=== PATIENT | male | born 1985 | race Caucasian/White ===

== ENCOUNTER 2016-12-06 10:51 | Emergency (ER) | payer OTHER ==
[2016-12-06 11:04] VITALS: BP 122/76; PULSE 83; TEMP 98.1; BMI 31.0
[2016-12-06] MEDS ORDERED: KETOROLAC TROMETHAMINE 60 MG/2 ML VIAL IM ONE (11:24)
[2016-12-06] MEDS ORDERED: KETOROLAC TROMETHAMINE 60 MG/2 ML VIAL ONE (11:36)
--- NOTE | 2016-12-06 12:17 | PDOC ---
History of Present Illness - General Chief Complaint: Chest Pain Stated Complaint: CHEST PAIN Time Seen by Provider: 12/06/16 11:22 History Source: Patient - History of Present Illness Initial Comments: 12/06/16 12:09 31 yr male with c/o pain to upper left side of back radiates across to chest worse with movement and deep breath. Pt has had the pain fo r3 days denies any trauma denies any heavy lifting or nausea or vomiting. no medical history. no foreign travel. immunizations are UTD. Pt did not take any meds [employer]. Severity: mild Associated Symptoms: reports: denies symptoms. denies: shortness of breath Past History - Past Medical History Allergies/Adverse Reactions: Allergies Allergy/AdvReac Type Severity Reaction Status Date / Time No Known Allergies Allergy Verified 12/06/16 11:04 Home Medications: Ambulatory Orders Emtricitabine/Tenofovir [Truvada -] 1 tab PO DAILY #30 tablet 11/13/16 Cyclobenzaprine HCl [Flexeril 10 mg] 5 mg PO TID PRN #15 tablet 12/06/16 Ibuprofen [Motrin -] 600 mg PO TID PRN #21 tablet 12/06/16 Asthma: No Diabetes: No HTN: No Other medical history: denies - Psycho/Social/Smoking Cessation Hx Suicidal Ideation: No Smoking History: Never smoked Information on smoking cessation initiated: No Hx Alcohol Use: No Drug/Substance Use Hx: No Substance Use Type: None Review of Systems - Review of Systems Able to Perform ROS?: Yes Is the patient limited Turkmen proficient: No Constitutional: No: Symptoms Reported HEENTM: No: Symptoms Reported Respiratory: No: Symptoms reported Cardiac (ROS): Yes: See HPI ABD/GI: No: Symptoms Reported Musculoskeletal: Yes: See HPI, Back Pain *Physical Exam - Vital Signs Last Vital Signs Temp Pulse Resp BP Pulse Ox 98.1 F 83 18 122/76 97 12/06/16 11:00 12/06/16 11:00 12/06/16 11:00 12/06/16 11:00 12/06/16 11:00 - Physical Exam General Appearance: Yes: Nourished, Appropriately Dressed HEENT: positive: EOMI, [place], Normal ENT Inspection, TMs Normal, Pharynx Normal Neck: positive: Supple. negative: Tender, Lymphadenopathy (R), Lymphadenopathy (L) Respiratory/Chest: positive: Lungs Clear, Normal Breath Sounds. negative: Chest Tender Cardiovascular: positive: Regular Rhythm, Regular Rate Gastrointestinal/Abdominal: positive: Normal Bowel Sounds, Soft Musculoskeletal: positive: Normal Inspection Extremity: positive: Normal Capillary Refill, Normal Inspection, Normal Range of Motion Integumentary: positive: Normal Color, Dry, Warm. negative: Hives, Rash Neurologic: positive: motion study technician II-XII NML intact, Fully Oriented, Alert, Normal Mood/ Affect, Normal Response, Motor Strength 10/26 ED Treatment Course - RADIOLOGY Radiology Studies Ordered: Category Date Time Status CHEST PA & LAT [RAD] Stat Radiology 12/06/16 11:33 Taken - Medications Given in the ED: ED Medications Discontinued Medications Generic Name Dose Route Start Last Admin Trade Name Freq PRN Reason Stop Dose Admin Ketorolac Tromethamine 60 mg 12/06/16 11:24 12/06/16 11:38 Toradol Injection - IM 12/06/16 11:25 60 mg ONCE ONE Administration Medical Decision Making - Medical Decision Making 12/06/16 12:17 cc: pain to back and to chest no nvd no arm pain no SOB or diff breathing pain is reproducable with movement and with deep breathing will get CXR and give toradol EKG done in triage is NSR with RBBB signed by 12/06/16 12:20 12/06/16 13:15 12/06/16 13:19 pt feels better after toradol states pain is much better. no other complaints at dc. pt will follow with PMD. *DC/Admit/Observation/Transfer Diagnosis at time of Disposition: Muscle strain - Discharge Dispostion Disposition: HOME Condition at time of disposition: Good - Prescriptions Prescriptions: Cyclobenzaprine HCl [Flexeril 10 mg] 5 mg PO TID PRN #15 tablet PRN Reason: Muscle Spasms Ibuprofen [Motrin -] 600 mg PO TID PRN #21 tablet PRN Reason: Pain - Patient Instructions Additional Instructions: follow with your medical doctor next week for follow up take motrin as directed for any pain take flexeril for any muscle spasm return to ER for any worsening symptoms
--- NOTE | 2016-12-06 16:37 | EKG ---
Test Reason : Blood Pressure : / mmHG Vent. Rate : 072 BPM Atrial Rate : 072 BPM P-R Int : 168 ms QRS Dur : 094 ms QT Int : 388 ms P-R-T Axes : 050 010 023 degrees QTc Int : 424 ms NORMAL SINUS RHYTHM NORMAL ECG Confirmed by STEPHANIE LEAVITT MD ([id number]) on 12/06/2016 4:36:41 PM Referred By: Confirmed By:STEPHANIE LEAVITT MD
== END 2016-12-06 13:31 | disposition home or self-care (01) ==
LOC: JERFT 10:51 → JER 10:51 → JERFT 13:31
PROC: 3E0233Z Introduction of Anti-inflammatory into Muscle, Percutaneous Approach (ICD-10-PCS; principal; 2016-12-06)
DX: T14.8 Other injury of unspecified body region (principal); X58.XXXA Exposure to other specified factors, initial encounter; Y93.9 Activity, unspecified; Y92.9 Unspecified place or not applicable
CPT/HCPCS: 71020-TC; 93005; 93010; 99281-25

== ENCOUNTER 2017-01-24 12:04 | Inpatient (IN) | payer OTHER ==
[2017-01-24 12:11] VITALS: BMI 31.3
[2017-01-24] MEDS ORDERED: ONDANSETRON 4 MG/2 ML VIAL IVPUSH ONE (12:37)
[2017-01-24] MEDS ORDERED: morphine CARPU-JECT 4 MG/1 ML DISP.SYRIN IVPUSH ONE (12:37)
[2017-01-24] MEDS ORDERED: SODIUM CHLORIDE 1,000 ML IV SCH ×2 (12:45→21:51)
[2017-01-24 12:50] LABS: BASOPHIL 0.2 % (0-2.0); MCH 29.2 pg (25.7-33.7); MCHC 33.2 g/dl (32.0-35.9); MEAN CELL VOLUME 87.8 fl (80-96); MEAN PLT VOLUME 7.1 fl (7.5-11.1); NEUTROPHILS 82.8 % (42.8-82.8); PLATELET COUNT 207 K/MM3 (134-434); RDW 13.5 % (11.9-15.9); WHITE BLOOD COUNT 15.7 K/mm3 (4.0-10.0)
[2017-01-24] MEDS ORDERED: ONDANSETRON 4 MG/2 ML VIAL ONE (13:12)
[2017-01-24] MEDS ORDERED: morphine CARPU-JECT 4 MG/1 ML DISP.SYRIN ONE (13:12)
[2017-01-24 13:16] LABS: ALBUMIN 4.2 g/dl (3.4-5.0); ANION GAP 9 (8-16); CALCIUM 8.7 mg/dL (8.5-10.1); CO2 30 mmol/L (21-32); GLUCOSE,RANDOM 86 mg/dL (74-106); SGPT/ALT 50 U/L (12-78)
[2017-01-24 13:17] LABS: ALK PHOS 92 U/L (45-117); BILIRUBIN,TOTAL 1.7 mg/dL (0.2-1.0); TOT PROT 7.5 g/dl (6.4-8.2)
[2017-01-24 13:18] LABS: SGOT/AST 29 U/L (15-37)
--- NOTE | 2017-01-24 13:23 | PDOC ---
History of Present Illness - General History Source: Patient Exam Limitations: No Limitations - History of Present Illness Initial Comments: 01/24/17 13:18 CHIEF COMPLAINT: Abdominal pain HISTORY OF PRESENT ILLNESS: This is a 31 year old male with no significant past medical history (uses Truvada for PrEP) who presents to the ED complaining of abdominal pain. He reports that the pain started last night after eating pizza, chinese fries, and other fried foods. He also had one alcoholic drink. The pain is lower abdominal, severe in nature, and not relieved by OTC pain meds. He denies any associated nausea/vomiting, diarrhea/constipation, dysuria, or fever. He has had some chills. Of note, the patient was recently noted to have mildly elevated LFTs (AST/ALT 69 /139) as an outpatient. V/s on arrival are notable for P 100. REVIEW OF SYSTEMS: GENERAL/CONSTITUTIONAL: Chills, no fever. No weakness. No weight change. HEAD, EYES, EARS, NOSE AND THROAT: No change in vision. No ear pain or discharge. No sore throat. CARDIOVASCULAR: No chest pain or palpitations. RESPIRATORY: No cough, wheezing, or shortness of breath. GASTROINTESTINAL: See HPI. GENITOURINARY: No dysuria, frequency, or change in urination. MUSCULOSKELETAL: No joint or muscle swelling or pain. No neck or back pain. SKIN: No rash or easy bruising. NEUROLOGIC: No headache, vertigo, loss of consciousness, or loss of sensation. PSYCHIATRIC: No depression or anxiety. ENDOCRINE: No increased thirst. No abnormal weight change. HEMATOLOGIC/LYMPHATIC: No anemia, easy bleeding, or history of blood clots. ALLERGIC/IMMUNOLOGIC: No hives or skin allergy. No latex allergy. PHYSICAL EXAM: GENERAL: The patient is awake, alert, and fully oriented, in some distress secondary to pain. HEAD: Normal with no signs of trauma. ENT: Pupils equal, round and reactive to light, extraocular movements intact, sclera anicteric, conjunctiva clear. Neck supple. LUNGS: Clear to auscultation bilaterally. Normal excursion. No respiratory distress or use of accessory muscles. CV: RRR, S1/S2, no MRG. Cap refill < 2 sec. ABDOMEN: Soft, non-distended, tender to palpation in RLQ without guarding or rebound tenderness. EXTREMITIES: Normal range of motion, no edema. NEUROLOGICAL: Normal speech, normal gait. CN II-XII grossly intact. PSYCH: Normal mood, normal affect. SKIN: Warm, moist. <Lizette Boykin - Last Filed: 01/24/17 18:08> <Kendra Parker - Last Filed: 01/24/17 18:14> - General Chief Complaint: Pain Stated Complaint: ABD PAIN Time Seen by Provider: 01/24/17 12:26 Past History - Past Medical History Asthma: No Diabetes: No HTN: No Other medical history: On Truvada for prevention - Psycho/Social/Smoking Cessation Hx Suicidal Ideation: No Smoking History: Never smoked Information on smoking cessation initiated: No Hx Alcohol Use: Yes (occasional) Drug/Substance Use Hx: No Substance Use Type: None <Lizette Boykin - Last Filed: 01/24/17 18:08> <Kendra Parker - Last Filed: 01/24/17 18:14> - Past Medical History Allergies/Adverse Reactions: Allergies Allergy/AdvReac Type Severity Reaction Status Date / Time No Known Allergies Allergy Verified 01/24/17 12:11 Home Medications: Ambulatory Orders NK [No Known Home Medication] 01/24/17 *Physical Exam - Vital Signs Last Vital Signs Temp Pulse Resp BP Pulse Ox 98.3 F 100 H 19 138/89 98 01/24/17 12:09 01/24/17 12:09 01/24/17 12:09 01/24/17 12:09 01/24/17 12:09 <Lizette Boykin - Last Filed: 01/24/17 18:08> - Vital Signs Last Vital Signs Temp Pulse Resp BP Pulse Ox 98.3 F 100 H 19 138/89 98 01/24/17 12:09 01/24/17 12:09 01/24/17 12:09 01/24/17 12:09 01/24/17 12:09 <Kendra Parker - Last Filed: 01/24/17 18:14> ED Treatment Course - LABORATORY CBC & Chemistry Diagram: 01/24/17 12:30 01/24/17 12:30 - ADDITIONAL ORDERS Additional order review: 01/24/17 12:30 RBC 5.10 MCV 87.8 MCHC 33.2 RDW 13.5 MPV 7.1 L Neutrophils % 82.8 D Lymphocytes % 9.5 D Monocytes % 7.5 Eosinophils % 0.0 D Basophils % 0.2 - RADIOLOGY Radiology Studies Ordered: Category Date Time Status ABDOMEN & PELVIS CT WITH CONTR [CT] Stat CT Scan 01/24/17 12:37 Ordered - Medications Given in the ED: ED Medications Discontinued Medications Generic Name Dose Route Start Last Admin Trade Name Josh PRN Reason Stop Dose Admin Morphine Sulfate 4 mg 01/24/17 12:37 01/24/17 13:10 Morphine Injection - IVPUSH 01/24/17 12:38 4 mg ONCE ONE Administration Ondansetron HCl 4 mg 01/24/17 12:37 01/24/17 13:10 Zofran Injection IVPUSH 01/24/17 12:38 4 mg ONCE ONE Administration <Lizette Boykin - Last Filed: 01/24/17 18:08> - LABORATORY CBC & Chemistry Diagram: 01/24/17 12:30 01/24/17 12:30 - ADDITIONAL ORDERS Additional order review: Laboratory Results 01/24/17 01/24/17 14:00 12:30 Sodium 138 Potassium 3.9 Chloride 99 Carbon Dioxide 30 Anion Gap 9 BUN 14 Creatinine 1.0 Creat Clearance w eGFR > 60 Random Glucose 86 Calcium 8.7 Total Bilirubin 1.7 H D AST 29 D ALT 50 D Alkaline Phosphatase 92 Total Protein 7.5 Albumin 4.2 Lipase 108 Urine Color Yellow Urine Appearance Clear Urine pH 6.0 Urine Protein Negative Urine Glucose (UA) Negative Urine Ketones Negative Urine Blood Negative Urine Nitrite Negative Urine Bilirubin Negative Urine Urobilinogen 4.0 e.u/dl Ur Leukocyte Esterase Negative 01/24/17 12:30 RBC 5.10 MCV 87.8 MCHC 33.2 RDW 13.5 MPV 7.1 L Neutrophils % 82.8 D Lymphocytes % 9.5 D Monocytes % 7.5 Eosinophils % 0.0 D Basophils % 0.2 - Medications Given in the ED: ED Medications Discontinued Medications Generic Name Dose Route Start Last Admin Trade Name Freq PRN Reason Stop Dose Admin Morphine Sulfate 4 mg 01/24/17 12:37 01/24/17 13:10 Morphine Injection - IVPUSH 01/24/17 12:38 4 mg ONCE ONE Administration Ondansetron HCl 4 mg 01/24/17 12:37 01/24/17 13:10 Zofran Injection IVPUSH 01/24/17 12:38 4 mg ONCE ONE Administration <Kendra Parker - Last Filed: 01/24/17 18:14> Medical Decision Making - Medical Decision Making 01/24/17 13:49 A/P: 31 year old male with abdominal pain and RLQ tenderness. 1. Labs including CBC, comp, lipase 2. CTAP to r/o appendicitis 3. Morphine 4mg IVP for pain 4. Re-assess 01/24/17 14:30 WBC 15.7 T Bili 1.7 01/24/17 17:59 CTAP reviewed: acute appendicitis without signs of perforation or abscess formation. Zosyn and NPO ordered. Discussed with Dr. Dias. <Lizette Boykin - Last Filed: 01/24/17 18:08> - Medical Decision Making Paged Dr. Dimas @ 18:14. Awaiting call back. <Kendra Parker - Last Filed: 01/24/17 18:14> *DC/Admit/Observation/Transfer - Discharge Dispostion Admit: Yes <Lizette Boykin - Last Filed: 01/24/17 18:08> <Kendra Parker - Last Filed: 01/24/17 18:14> Diagnosis at time of Disposition: Appendicitis Qualifiers: Appendicitis type: acute appendicitis Acute appendicitis type: unspecified acute appendicitis type Qualified Code(s): K35.80 - Unspecified acute appendicitis
[2017-01-24 14:16] LABS: URINE APPEARANCE CLEAR; URINE BILIRUBIN NEGATIVE (NEGATIVE); URINE BLOOD NEGATIVE (NEGATIVE); URINE COLOR YELLOW; URINE GLUCOSE (UA) NEGATIVE (NEGATIVE); URINE KETONE NEGATIVE (NEGATIVE); URINE LEUK ESTERASE NEGATIVE (NEGATIVE); URINE NITRITE NEGATIVE (NEGATIVE); URINE PROTEIN NEGATIVE (NEGATIVE); URINE UROBILINOGEN 4.0 E.U/dl mg/dL (0.2-1.0)
[2017-01-24] MEDS ORDERED: PIPERACILLIN/TAZOB 4.5 GM/100 ML PRE-DOCKED IVPB ONE (17:59)
[2017-01-24] MEDS ORDERED: PIPERACILLIN/TAZOB 4.5 GM 100 ML IVPB ONE (18:12)
--- NOTE | 2017-01-24 19:20 | PDOC ---
*Physical Exam - Vital Signs Last Vital Signs Temp Pulse Resp BP Pulse Ox 98.6 F 82 19 103/61 98 01/24/17 16:09 01/24/17 16:09 01/24/17 12:09 01/24/17 16:09 01/24/17 16:09 - Physical Exam General Appearance: Yes: Nourished, Appropriately Dressed Neck: positive: Trachea midline Respiratory/Chest: positive: Lungs Clear, Normal Breath Sounds Cardiovascular: positive: Regular Rhythm, Regular Rate, S1, S2. negative: Edema Gastrointestinal/Abdominal: positive: Normal Bowel Sounds, Tender (rlq ttp no rebound no guarding.), Flat, Soft Musculoskeletal: positive: Normal Inspection. negative: CVA Tenderness Extremity: positive: Normal Capillary Refill Integumentary: positive: Normal Color, Dry, Warm Neurologic: positive: Fully Oriented ED Treatment Course - LABORATORY CBC & Chemistry Diagram: 01/24/17 12:30 01/24/17 12:30 - ADDITIONAL ORDERS Additional order review: Laboratory Results 01/24/17 01/24/17 14:00 12:30 Sodium 138 Potassium 3.9 Chloride 99 Carbon Dioxide 30 Anion Gap 9 BUN 14 Creatinine 1.0 Creat Clearance w eGFR > 60 Random Glucose 86 Calcium 8.7 Total Bilirubin 1.7 H D AST 29 D ALT 50 D Alkaline Phosphatase 92 Total Protein 7.5 Albumin 4.2 Lipase 108 Urine Color Yellow Urine Appearance Clear Urine pH 6.0 Ur Specific [place] 1.015 Urine Protein Negative Urine Glucose (UA) Negative Urine Ketones Negative Urine Blood Negative Urine Nitrite Negative Urine Bilirubin Negative Urine Urobilinogen 4.0 e.u/dl Ur Leukocyte Esterase Negative 01/24/17 12:30 RBC 5.10 MCV 87.8 MCHC 33.2 RDW 13.5 MPV 7.1 L Neutrophils % 82.8 D Lymphocytes % 9.5 D Monocytes % 7.5 Eosinophils % 0.0 D Basophils % 0.2 - Medications Given in the ED: ED Medications Discontinued Medications Generic Name Dose Route Start Last Admin Trade Name Freq PRN Reason Stop Dose Admin Morphine Sulfate 4 mg 01/24/17 12:37 01/24/17 13:10 Morphine Injection - IVPUSH 01/24/17 12:38 4 mg ONCE ONE Administration Ondansetron HCl 4 mg 01/24/17 12:37 01/24/17 13:10 Zofran Injection IVPUSH 01/24/17 12:38 4 mg ONCE ONE Administration Piperacillin Sod/Tazobactam Sod 4.5 gm 01/24/17 17:59 01/24/17 18:20 Zosyn 4.5gm Ivpb (Pre-Docked) IVPB 01/24/17 18:00 4.5 gm ONCE ONE Administration Medical Decision Making - Medical Decision Making 01/24/17 19:18 31 yo ma with h/o prophylaxis truvada here wtih c/o abd pain. had elevated liver test. no n/v no f/c pain moderatek right sided lower abd. on exam awake alert lungs clear heart rrr nomrg. abd soft rlq ttp. plan: ct a/p gb us. labs pt seen and examined with dr. juárez. agree with plan. focused ED ultrasound RUQ, indication abd pain elevated liver enzymes gb scanned in two planes no stones, no wall thickening or edema. normal cbd. negative sonographic pimentel' s cbd < 4 mm wall normal 1.4 mm impression: normal gallbladder. cirilli ct with appendicitsl.d/w dr. winston, will see in ed. *DC/Admit/Observation/Transfer Diagnosis at time of Disposition: Appendicitis Qualifiers: Appendicitis type: acute appendicitis Acute appendicitis type: unspecified acute appendicitis type Qualified Code(s): K35.80 - Unspecified acute appendicitis
--- NOTE | 2017-01-24 20:13 | HP ---
Satellite [facility] - Chief Complaint Chief Complaint: C/O Right lower quadrant abdominal pain since yesterday. History of Present Illness: C/O Right lwer quadrant abdominal pain since yesterday, persistent and not relieved . Has loss of appetite. No fever , no chills. History Source: Patient Limitations to Obtaining History: No Limitations - Past Medical History Allergies/Adverse Reactions: Allergies Allergy/AdvReac Type Severity Reaction Status Date / Time No Known Allergies Allergy Verified 01/24/17 12:11 - Current Medications Current Medications: Home Medications Medication Instructions Recorded NK [No Known Home Medication] 01/24/17 [facility] Physical Exam - Physical Examination Abdomen: Soft (Tender in the right lower quadrant of abdomen with guarding. Obese abdomen.) Satellite Impression/Plan - Impression/Plan Impression: Acute appendicitis. Plan : Laparoscopic appendectomy , possible open. Patient is explained the procedure , with alternatives, and complications , of bleeding , abscess, etc. Consent obtained for laparoscopic appendectomy , possible open. Antibiotics given. To OR. Operative Procedure: Laparoscopic appendectomy , possible open. Date to be Performed: 01/24/17
[2017-01-24] MEDS ORDERED: LIDOCAINE HCL 1%, 10 MG/ML (20ML VIAL) ONE (21:12)
[2017-01-24] MEDS ORDERED: BUPIVACAINE HCL/PF 0.5% (5MG/ML) 10 ML VIAL ONE (21:13)
[2017-01-24] MEDS ORDERED: LIDOCAINE HCL 1%, 10 MG/ML (20ML VIAL) IJ ONE (21:18)
[2017-01-24] MEDS ORDERED: BUPIVACAINE HCL/PF 0.5% (5MG/ML) 10 ML VIAL IJ ONE (21:19)
[2017-01-24] MEDS ORDERED: HYDROmorphone HCL CARPU-JECT 1 MG/1 ML DISP.SYRIN IVPB PRN (21:35)
--- NOTE | 2017-01-24 21:39 | OP ---
Operative Note - Note: Operative Date: 01/24/17 Pre-Operative Diagnosis: Acute appendicitis Operation: Laparoscopic appendectomy. Findings: Acute suppurative appendicitis. Post-Operative Diagnosis: Other (Acute suppurative appendicitis.) Surgeon: Grant Dias Anesthesia: General Specimens Removed: Appendix Estimated Blood Loss (mls): 10 Operative Report Dictated: Yes
[2017-01-24] MEDS ORDERED: HYDROmorphone HCL CARPU-JECT 1 MG/1 ML DISP.SYRIN IVPUSH PRN (21:47)
[2017-01-24] MEDS ORDERED: ONDANSETRON 4 MG/2 ML VIAL IVPUSH PRN (21:47)
[2017-01-24] MEDS ORDERED: ACETAMINOPHEN 1000 MG/100 ML VIAL (NON FORMULARY) IVPB ONE (21:49)
[2017-01-24] MEDS ORDERED: ACETAMINOPHEN INJECTION 100 ML IVPB ONE (21:54)
[2017-01-24] MEDS: LACTATED RINGERS SOLUTION 1,000 ML IV SCH (23:24)
[2017-01-25] MEDS: METRONIDAZOLE 500 MG PREMIXED 100 ML IVPB SCH ×3 (01:39→17:15)
--- NOTE | 2017-01-25 08:40 | PN ---
Progress Note (short form) - Note Progress Note: Anesthesia post op Pt seen and examined S:alert and awake O: Vital Signs Temperature 97.4 F L 01/25/17 06:00 Pulse Rate 50 L 01/25/17 06:00 Respiratory Rate 20 01/25/17 06:00 Blood Pressure 100/50 01/25/17 06:00 O2 Sat by Pulse Oximetry (%) 99 01/25/17 00:19 A/P:Current Active Problems Appendicitis (Acute) s/p appendectomy Doing well post op Continue current care Rod Rivera MD
[2017-01-25 08:56] LABS: BASOPHIL 0.1 % (0-2.0); MCH 29.5 pg (25.7-33.7); MCHC 33.5 g/dl (32.0-35.9); MEAN CELL VOLUME 87.9 fl (80-96); MEAN PLT VOLUME 7.5 fl (7.5-11.1); NEUTROPHILS 90.3 % (42.8-82.8); PLATELET COUNT 212 K/MM3 (134-434); RDW 13.8 % (11.9-15.9); WHITE BLOOD COUNT 11.6 K/mm3 (4.0-10.0)
[2017-01-25 09:03] LABS: ANION GAP 10 (8-16); CALCIUM 8.5 mg/dL (8.5-10.1); CO2 27 mmol/L (21-32); GLUCOSE,RANDOM 119 mg/dL (74-106)
[2017-01-25 09:04] LABS: CREATININE 0.9 mg/dL (0.7-1.3)
[2017-01-25] MEDS: LACTATED RINGERS SOLUTION 1,000 ML IV SCH (09:07)
[2017-01-25] MEDS ORDERED: PT OWN MED DRAWER 7, Y5N ONE (09:10)
[2017-01-25] MEDS: LEVOFLOXACIN 500 MG IVPB 100 ML IVPB SCH (09:12)
--- NOTE | 2017-01-25 09:31 | OP ---
DATE OF OPERATION: 01/24/2017 PREOPERATIVE DIAGNOSIS: Acute appendicitis. POSTOPERATIVE DIAGNOSIS: Acute suppurative appendicitis. OPERATIVE PROCEDURE: Laparoscopic appendectomy. SURGEON: Kaylee Dias MD ANESTHESIA: General anesthesia. OPERATIVE DESCRIPTION: This 31-year-old man came to the emergency room complaining of right lower quadrant abdominal pain for 2 days associated with nausea. Patient is obese. He is tender in the right lower quadrant. CAT scan suggested acute appendicitis. Patient was informed of the diagnosis and suggested laparoscopic appendectomy, possible open appendectomy. Risks, benefits, and complications were discussed with the patient, including alternatively treating with antibiotics. Consent was obtained. Patient was given antibiotics in the emergency room. Patient was brought to the operating room for laparoscopic appendectomy. Patient was given general anesthesia. [place]a catheter was placed in the bladder. It was removed right after the surgery. The abdomen was painted and draped. Incision was made in the infraumbilical portion of the umbilicus. It was deepened through the skin, subcutaneous tissue, and the linea alba. The peritoneum was incised and a 10-to-12-mm laparoscopic trocar of the Coy type was inserted into the abdominal cavity. The abdomen was insufflated with carbon dioxide at 6 L per minute to with a maximum intraabdominal pressure of 15 mmHg. A 5-mm laparoscopic camera was introduced into the abdominal cavity. Under direct vision, a 5-mm trocar was inserted into the abdomen in the suprapubic area after making a small incision on the skin. This was noted to enter the abdominal cavity under direct vision with the camera. A 3rd trocar, another 5-mm, was inserted in the right upper quadrant of the abdomen entering the abdominal cavity under direct vision with the camera. The cecum was normal and so was the terminal ileum. The appendix was then identified in a retroileal position. This was then mobilized on the tip. There was a suppurative purulent exudate on the surface of the appendix. The appendix was then grasped with a grasper through the right upper quadrant of the abdomen and retracted cephalad and anteriorly, thus exposing the rest of the appendix. The mesoappendix was visualized. The camera was switched to the subxiphoid port. The Harmonic scalpel was then introduced through the umbilical port and the mesoappendix was then divided using the Harmonic scalpel to cauterize all the vessels and divide the mesoappendix. This was followed all the way up to the base of the appendix. Once the base of the appendix was identified, an Endo-FARHAT was introduced through the umbilical port. This was fired across the base of the appendix. The staple line was complete. There was no bleeding. An EndoCatch was then introduced through the umbilical port, the appendix placed in the EndoCatch and retrieved out of the abdominal cavity. Specimen was sent to Pathology. The right lower quadrant of the abdomen was then thoroughly irrigated with normal saline. All fluid was clear. There was no bleeding. The rest of the bowel was normal. The instruments were withdrawn under direct vision. The linea alba in the midline at the umbilicus was approximated with interrupted [id number] 0 Vicryl sutures. The skin was approximated with buried interrupted 4-0 Biosyn sutures. Sponge count, instrument count were correct. Dermabond was applied across the skin edges. Estimated blood loss was less than 10. Patient tolerated the procedure well, was extubated, and sent to the recovery room in satisfactory and stable condition. Marbin [id number]
--- NOTE | 2017-01-25 13:35 | PN ---
Progress Note, Physician History of Present Illness: S/P laparoscopic appendectomy. Patient is feeling well. He is hungry. Nursing staff have him NPO. Abdomen is soft , not tender. WBC is improving. Continue antibiotics. Regular diet , D.C Iv fluids. - Current Medication List Current Medications: Active Medications Acetaminophen (Tylenol -) 325 mg PO Q6H PRN PRN Reason: PAIN Fentanyl (Sublimaze Injection -) 50 mcg IVPUSH [id number] PRN PRN Reason: PAIN Stop: 01/27/17 21:48 Hydromorphone HCl (Dilaudid Injection -) 1 mg IVPB Q4H PRN PRN Reason: PAIN Hydromorphone HCl (Dilaudid Injection -) 0.5 mg IVPUSH [id number] PRN PRN Reason: PAIN Stop: 01/27/17 21:48 Levofloxacin (Levaquin 500 Mg Premixed Ivpb -) 100 mls @ 100 mls/hr IVPB DAILY [facility] Last Admin: 01/25/17 09:12 Dose: 100 mls/hr Metronidazole (Flagyl 500mg Premixed Ivpb -) 100 mls @ 100 mls/hr IVPB Q8H-IV JIM Last Admin: 01/25/17 09:11 Dose: 100 mls/hr Lactated Ringer's (Lactated Ringers Solution) 1,000 mls @ 125 mls/hr IV ASDIR [facility] Last Admin: 01/25/17 09:07 Dose: 125 mls/hr Sodium Chloride (Normal Saline -) 1,000 mls @ 125 mls/hr IV ASDIR [facility] Last Admin: 01/24/17 22:30 Dose: 0 mls Oxycodone HCl (Roxicodone -) 5 mg PO Q6H PRN PRN Reason: PAIN - Objective Vital Signs: Vital Signs Temperature 97.5 F L 01/25/17 08:00 Pulse Rate 53 L 01/25/17 08:00 Respiratory Rate 18 01/25/17 08:00 Blood Pressure 107/64 01/25/17 08:00 O2 Sat by Pulse Oximetry (%) 99 01/25/17 00:19 Labs: CBC, BMP 01/25/17 06:00 01/25/17 06:00
[2017-01-25] MEDS: oxyCODONE HCL 5 MG TABLET PO PRN (14:35)
[2017-01-25] MEDS: ACETAMINOPHEN 325 MG TABLET (FP) PO PRN (14:36)
[2017-01-26] MEDS: LACTATED RINGERS SOLUTION 1,000 ML IV SCH (01:59)
[2017-01-26] MEDS: METRONIDAZOLE 500 MG PREMIXED 100 ML IVPB SCH ×2 (02:00→09:55)
[2017-01-26] MEDS: oxyCODONE HCL 5 MG TABLET PO PRN (08:17)
[2017-01-26] MEDS: ACETAMINOPHEN 325 MG TABLET (FP) PO PRN (08:18)
[2017-01-26] MEDS: LEVOFLOXACIN 500 MG IVPB 100 ML IVPB SCH (11:02)
--- NOTE | 2017-01-26 11:53 | PN ---
Progress Note, Physician - Current Medication List Current Medications: Active Medications Acetaminophen (Tylenol -) 325 mg PO Q6H PRN PRN Reason: PAIN Last Admin: 01/26/17 08:18 Dose: 325 mg Hydromorphone HCl (Dilaudid Injection -) 1 mg IVPB Q4H PRN PRN Reason: PAIN Hydromorphone HCl (Dilaudid Injection -) 0.5 mg IVPUSH [id number] PRN PRN Reason: PAIN Stop: 01/27/17 21:48 Levofloxacin (Levaquin 500 Mg Premixed Ivpb -) 100 mls @ 100 mls/hr IVPB DAILY [facility] Last Admin: 01/26/17 11:02 Dose: 100 mls/hr Metronidazole (Flagyl 500mg Premixed Ivpb -) 100 mls @ 100 mls/hr IVPB Q8H-IV JIM Last Admin: 01/26/17 09:55 Dose: 100 mls/hr Lactated Ringer's (Lactated Ringers Solution) 1,000 mls @ 125 mls/hr IV ASDIR [facility] Last Admin: 01/26/17 01:59 Dose: Not Given Oxycodone HCl (Roxicodone -) 5 mg PO Q6H PRN PRN Reason: PAIN Last Admin: 01/26/17 08:17 Dose: 5 mg - Objective Vital Signs: Vital Signs Temperature 97.8 F 01/26/17 06:36 Pulse Rate 66 01/26/17 06:36 Respiratory Rate 20 01/26/17 06:36 Blood Pressure 97/64 01/26/17 06:36 O2 Sat by Pulse Oximetry (%) 99 01/25/17 21:00 Labs: CBC, BMP 01/25/17 06:00 01/25/17 06:00 Assessment/Plan Patient is comfortable, has no complaints. Normal temperature. Plan : Discharge home, instructions given. Will continue oral antibiotics. Will follow in the office.
[2017-01-26 14:40] VITALS: BP 95/58; PULSE 80; TEMP 98.2
--- NOTE | 2017-01-28 15:46 | PATH ---
Surgical Pathology Report Patient Name: CARTER CADENA Med. Rec. #: [id number] /Age/Gender: 1985 (Age: 31) / M Account: [id number] Location: [facility] MED/SURG Taken: 01/24/2017 Received: 01/25/2017 Reported: 01/28/2017 Physicians: Kaylee Dias M.D. Specimen(s) Received APPENDIX Clinical History Appendicitis Final Diagnosis APPENDIX, APPENDECTOMY: ACUTE APPENDICITIS AND PERIAPPENDICITIS WITH AREA OF APPARENT PERFORATION. Electronically Signed Jero Campa M.D. Gross Description Received in formalin, labeled "appendix," is a 6.5 cm. in length vermiform appendix with a stapled margin of resection and minimal attached fat. The serosa is cole-caruso and necrotic with a focal defect. Sectioning reveals a hemorrhagic lumen. The wall of the appendix averages 0.1 cm. in thickness. Invoice Classification Clerk sections are submitted in one cassette. 01/25/2017 [facility]01/25/2017
== END 2017-01-26 13:30 | disposition home or self-care (01) | DRG 343 ==
LOC: JER 12:04 → JERBED 18:09 → J8W 22:48
PROVIDERS: ADMIT Internal Medicine; ATTEND Internal Medicine
PROC: 0DTJ4ZZ Resection of Appendix, Percutaneous Endoscopic Approach (ICD-10-PCS; principal; 2017-01-24 20:00)
DX: K35.89 Other acute appendicitis (principal)
CPT/HCPCS: 36415; 74177-TC; 76705-TC; 80048; 80053; 81003; 83690; 85025; 88304-TC; 94760; 99282-25; Q9967

== ENCOUNTER 2017-09-15 08:56 | Emergency (ER) | payer OTHER ==
[2017-09-15 09:04] VITALS: BP 121/68; PULSE 71; TEMP 97.9; BMI 32.8
--- NOTE | 2017-09-15 09:22 | PDOC ---
History of Present Illness - General History Source: Patient Exam Limitations: No Limitations - History of Present Illness Initial Comments: 09/15/17 09:56 The patient is a 32 year old male, with a significant past medical history of appendicitis s/p appendectomy, chlamydia, gonorrhea, who presents to the emergency department with, progressively worsening dysuria and genital/ penile pain for 5 days. The patient states he was evaluated on Saturday at an urgent care for the dysuria which he states was mild at the time and had a urine panel and STD panel performed. The patient states that he was notified that he has a UTI and has been started on antibiotics Macrobid which he has been taking 2x a day as prescribed. The patient reports the dysuria has been progressively worsening throughout the week and states he has genital/ penile pain that is made worse when urinating and bending over. The patient states he was recently diagnosed with syphilis in July, and has since finished his course of antibiotics for the syphilis with relief. The patient states he is currently pending his results for the STD panel taken at the urgent care on Saturday. The patient also reports he has an upcoming appointment with a urologist on 09/19/17. He denies any recent fevers, chills, headache or dizziness. He denies any recent nausea, vomit, diarrhea or constipation. He denies any recent chest pain or shortness of breath. He denies any recent frequency, urgency or hematuria. Allergies: penicillin V Past surgical history: appendectomy <Cornelio Henderson - Last Filed: 09/15/17 09:55> <Toshia Cordoba - Last Filed: 09/15/17 11:23> - General Chief Complaint: Pain Stated Complaint: UTI, PELVIC PAIN Time Seen by Provider: 09/15/17 09:07 Past History <Cornelio Henderson - Last Filed: 09/15/17 09:55> - Past Medical History Asthma: No COPD: No Diabetes: No HTN: No - Surgical History Appendectomy: Yes (01/2017 - laparoscopic) - Suicide/Smoking/Psychosocial Hx Smoking History: Never smoked Hx Alcohol Use: Yes (occasional) Drug/Substance Use Hx: Yes (crystal meth - occasional/rare, smokes) Substance Use Type: None Hx Substance Use Treatment: No <Toshia Cordoba - Last Filed: 09/15/17 11:23> - Past Medical History Allergies/Adverse Reactions: Allergies Allergy/AdvReac Type Severity Reaction Status Date / Time penicillin V Allergy Mild Rash Verified 09/15/17 09:04 Home Medications: Ambulatory Orders Emtricitabine/Tenofovir [Truvada] 1 tab PO DAILY #30 tab 07/31/17 Ciprofloxacin [Cipro (Restricted To Id)] 500 mg PO Q12H #14 tablet 09/15/17 Phenazopyridine HCl [Pyridium] 100 mg PO TID PRN #9 tablet 09/15/17 Review of Systems - Review of Systems Comments:: 09/15/17 09:57 GENERAL/CONSTITUTIONAL: No fever or chills. No weakness. HEAD, EYES, EARS, NOSE AND THROAT: No change in vision. No ear pain or discharge. No sore throat. CARDIOVASCULAR: No chest pain or shortness of breath. RESPIRATORY: No cough, wheezing, or hemoptysis. GASTROINTESTINAL: No nausea, vomiting, diarrhea or constipation. GENITOURINARY: +Dysuria. +Genital/ Penile pain. No frequency, or change in urination. MUSCULOSKELETAL: No joint or muscle swelling or pain. No neck or back pain. SKIN: No rash NEUROLOGIC: No headache, vertigo, loss of consciousness, or change in strength/ sensation. ENDOCRINE: No increased thirst. No abnormal weight change. HEMATOLOGIC/LYMPHATIC: No anemia, easy bleeding, or history of blood clots. ALLERGIC/IMMUNOLOGIC: No hives or skin allergy. <Cornelio Henderson - Last Filed: 09/15/17 09:55> *Physical Exam - Vital Signs Last Vital Signs Temp Pulse Resp BP Pulse Ox 97.9 F 71 18 121/68 97 09/15/17 08:59 09/15/17 08:59 09/15/17 08:59 09/15/17 08:59 09/15/17 08:59 - Physical Exam Comments: 09/15/17 09:58 GENERAL: Awake, alert, and fully oriented, in no acute distress HEAD: No signs of trauma EYES: PERRLA, EOMI, sclera anicteric, conjunctiva clear ENT: Auricles normal inspection, hearing grossly normal, nares patent, oropharynx clear without exudates. Moist mucosa NECK: Normal ROM, supple, no lymphadenopathy, JVD, or masses LUNGS: Breath sounds equal, clear to auscultation bilaterally. No wheezes, and no crackles HEART: Regular rate and rhythm, normal S1 and S2, no murmurs, rubs or gallops ABDOMEN: Soft, nontender, normoactive bowel sounds. No guarding, no rebound. No masses PELVIC: Patient is not circumcised but retraction of the foreskin shows no infection on the tip of penis. No sores or ulcers. No Lymphadenopathy in the groin. Testicles are non tender. EXTREMITIES: Normal range of motion, no edema. No clubbing or cyanosis. No cords, erythema, or tenderness NEUROLOGICAL: Cranial nerves II through XII grossly intact. Normal speech, normal gait SKIN: Warm, Dry, normal turgor, no rashes or lesions noted. <Cornelio Henderson - Last Filed: 09/15/17 09:55> - Vital Signs Last Vital Signs Temp Pulse Resp BP Pulse Ox 97.9 F 71 18 121/68 97 09/15/17 08:59 09/15/17 08:59 09/15/17 08:59 09/15/17 08:59 09/15/17 08:59 <Toshia Cordoba - Last Filed: 09/15/17 11:23> Medical Decision Making - Medical Decision Making 09/15/17 10:51 a/p: 32yo male with hx of HIV exposure on PrEP with dysuria and hesitancy -currently on macrobid -GC/CHLAMYDIA pending from urgent care -recently treated for syphilis with doxy -will repeat ua/urine culture -will repeat std testing today 09/15/17 11:22 pt with UTI on labs cultures pending pt currently on macrobid - discussed with the patient stopping the macrobid and starting cipro discussed that STD testing is still pending discussed that a culture on the UA was sent and is pending discussed keeping appt with urology for 09/19 answered all questions discussed use of pyridium and not wearing contacts while taking pyridium, but instead wearing glasses pt stable for d/c to home <Toshia Cordoba - Last Filed: 09/15/17 11:23> *DC/Admit/Observation/Transfer - Attestations Scribe Attestion: 09/15/17 10:00 Documentation prepared by Cornelio Henderson, acting as medical accountant for Toshia Cordoba DO. <Henderson,Cornelio - Last Filed: 09/15/17 09:55> - Discharge Dispostion Admit: No - Attestations Physician Attestion: 09/15/17 11:21 I, Dr. Toshia Cordoba DO, attest that this document has been prepared under my direction and personally reviewed by me in its entirety. I further attest, that it accurately reflects all work, treatment, procedures and medical decision -making performed by me. <Toshia Cordoba - Last Filed: 09/15/17 11:23> Diagnosis at time of Disposition: UTI (urinary tract infection) - Discharge Dispostion Disposition: HOME Condition at time of disposition: Stable - Prescriptions Prescriptions: Ciprofloxacin [Cipro (Restricted To Id)] 500 mg PO Q12H #14 tablet Phenazopyridine HCl [Pyridium] 100 mg PO TID PRN #9 tablet PRN Reason: Pain - Referrals Referrals: Bob Wiley MD [Staff Physician] - Adam Hendrickson MD [Staff Physician] - Mark Cohen MD [Staff Physician] - - Patient Instructions Printed Discharge Instructions: DI for Urinary Tract Infection (UTI) Additional Instructions: Please take all medications as prescribed. Please do not wear your contacts while taking pyridium. Wear your glasses. Please take tylenol or motrin for pain. Please keep your appointment for 09/19 with the urologist. Your cultures are still pending. Please return to the ED with any further concerns. Please make an appointment to see your PMD.
[2017-09-15] MEDS ORDERED: PHENAZOPYRIDINE HCL 100 MG TABLET (FP) PO ONE (09:23)
[2017-09-15] MEDS ORDERED: PHENAZOPYRIDINE HCL 100 MG TABLET (FP) ONE (09:34)
[2017-09-15] MEDS ORDERED: KETOROLAC TROMETHAMINE 60 MG/2 ML VIAL IM ONE (09:51)
[2017-09-15] MEDS ORDERED: KETOROLAC TROMETHAMINE 60 MG/2 ML VIAL ONE (09:52)
[2017-09-15 10:17] LABS: URINE APPEARANCE CLOUDY; URINE BILIRUBIN NEGATIVE (<2.0 mg/dL); URINE BLOOD 2+ (NEGATIVE); URINE COLOR YELLOW; URINE GLUCOSE (UA) NEGATIVE (NEGATIVE); URINE KETONE NEGATIVE (NEGATIVE); URINE NITRITE NEGATIVE (NEGATIVE); URINE UROBILINOGEN NEGATIVE mg/dL (0.2-1.0)
[2017-09-15 10:21] LABS: URINE LEUK ESTERASE 3+ (NEGATIVE); URINE PROTEIN 2+ (NEGATIVE)
[2017-09-15 10:23] LABS: EPI CELLS RARE /HPF (FEW); URINE MUCUS RARE
[2017-09-15] MEDS ORDERED: CIPROFLOXACIN 500 MG TABLET (RESTRICTED TO ID) PO ONE (11:14)
== END 2017-09-15 11:28 | disposition home or self-care (01) ==
LOC: JER 08:56
PROC: 3E0233Z Introduction of Anti-inflammatory into Muscle, Percutaneous Approach (ICD-10-PCS; principal; 2017-09-15)
DX: Z86.19 Personal history of other infectious and parasitic diseases (principal)
CPT/HCPCS: 36415; 81003; 81015; 87086; 87491; 87591; 99282-25

== ENCOUNTER 2020-07-27 08:23 | Emergency (ER) | payer OTHER ==
[2020-07-27 08:31] VITALS: TEMP 98; BMI 32.8
[2020-07-27] MEDS ORDERED: KETOROLAC TROMETHAMINE 30 MG/1 ML VIAL IM ONE (09:22)
[2020-07-27 09:58] LABS: BASO % 0.4 % (0-2.0); EOS % 1.2 % (0-4.5); HEMATOCRIT 46.8 % (35.4-49); MCH 29.5 pg (25.7-33.7); MCHC 34.3 g/dl (32.0-35.9); MEAN CELL VOLUME 86.1 fl (80-96); MEAN PLT VOLUME 7.5 fl (7.5-11.1); MONO % 9.2 % (3.8-10.2); NEUT % 50.2 % (42.8-82.8); PLATELET COUNT 281 K/MM3 (134-434); RBC 5.44 M/mm3 (4.00-5.60); RDW 13.3 % (11.9-15.9); WHITE BLOOD COUNT 5.8 K/mm3 (4.0-10.0)
[2020-07-27 10:16] LABS: CHLORIDE 107 mmol/L (98-107); SODIUM 141 mmol/L (136-145)
[2020-07-27 10:17] LABS: ALBUMIN 4.2 g/dl (3.4-5.0); CALCIUM 9.2 mg/dL (8.5-10.1); CO2 28 mmol/L (21-32)
[2020-07-27 10:19] LABS: GLUCOSE,RANDOM 98 mg/dL (74-106)
[2020-07-27 10:20] LABS: INR 1.11 (0.83-1.09); PROTHROMBIN TIME (PATIENT) 13.6 SEC (9.7-13.0)
[2020-07-27 10:20] LABS: SGOT/AST 28 U/L (15-37); SGPT/ALT 72 U/L (13-61)
[2020-07-27] MEDS ORDERED: KETOROLAC TROMETHAMINE 30 MG/1 ML VIAL ONE (10:21)
[2020-07-27 10:23] LABS: BILIRUBIN,TOTAL 0.8 mg/dL (0.2-1); TOT PROT 7.8 g/dl (6.4-8.2)
[2020-07-27 10:24] LABS: ALK PHOS 100 U/L (45-117)
[2020-07-27] MEDS ORDERED: KETOROLAC TROMETHAMINE 30 MG/1 ML VIAL IVPUSH ONE (10:25)
[2020-07-27 10:34] LABS: ANION GAP 6 MMOL/L (8-16); BLOOD UREA NITROGEN 14.3 mg/dL (7-18); CREATININE 0.9 mg/dL (0.55-1.3); POTASSIUM 4.3 mmol/L (3.5-5.1)
[2020-07-27 11:50] VITALS: BP 124/82; PULSE 70
== END 2020-07-27 11:50 | disposition home or self-care (01) ==
LOC: JER 08:23
PROC: 3E0333Z Introduction of Anti-inflammatory into Peripheral Vein, Percutaneous Approach (ICD-10-PCS; principal; 2020-07-27)
DX: R07.9 Chest pain, unspecified (principal)
CPT/HCPCS: 36415; 71046-TC-FY; 80053; 82550; 84484; 85025; 85610; 93005; 93010; 99285-25; C9803; U0003